=== PATIENT | female | born 1950 | race Caucasian/White ===

== ENCOUNTER → 2017-04-10 | Outpatient (CLI) | payer OTHER ==
[~2017-04-10] MED LIST: AMBIEN 10 MG TA10 MG; MOBIC7.5 M1 PO; NORCO 5-325 TA1 EACH; PERCOCET 5-3251 EACH PO; ROBAXIN 750 MG750 MG PO; VALIUM10 MG PO
== END ==
LOC: M.LAB 02:53
DX: Z01.812 Encounter for preprocedural laboratory examination (principal)